=== PATIENT | female | born 1995 | race Caucasian/White ===

== ENCOUNTER 2017-10-01 03:40 | Emergency (ER) | payer SELFPAY ==
[2017-10-01] MEDS ORDERED: FENTANYL CITRATE INJ/PF 100 MCG/2 ML AMPUL IV ONE (03:55)
[2017-10-01] MEDS ORDERED: ONDANSETRON HCL INJ/PF 4 MG/2 ML SDV IV ONE (03:55)
--- NOTE | 2017-10-01 03:58 | ER Document Report ---
ED ENT <DE TOBIN - Last Filed: 10/01/17 04:32> <MANUEL VILLANUEVA - Last Filed: 10/01/17 05:52> - General Chief Complaint: Jaw Pain Stated Complaint: MOUTH ISSUE Time Seen by Provider: 10/01/17 03:52 Notes: Patient is a 22-year-old female comes emergency department for chief complaint of jaw dislocation. Patient states she vomited twice after having 7-8 beers, she states during this process she felt her jaw dislocate. She last dislocated her jaw 4 months ago, she has had surgery since, has not dislocated since the surgery. She has dislocated her jaw 3 times previously. She was brought here by her friends. She has an IUD. She denies any daily medications. (MANUEL VILLANUEVA) - Related Data Allergies/Adverse Reactions: No Known Allergies Allergy (Unverified 10/01/17 03:52) Past Medical History - General Information source: Patient - Social History Smoking Status: Never Smoker Frequency of alcohol use: Social Drug Abuse: None Lives with: Friend Family History: Reviewed & Not Pertinent Patient has suicidal ideation: No Patient has homicidal ideation: No Renal/ Medical History: Denies: Hx Peritoneal Dialysis Musculoskeltal Medical History: Reports Other - Mandible dislocations Past Surgical History: Reports: Hx Orthopedic Surgery - Jaw surgery <MANUEL VILLANUEVA - Last Filed: 10/01/17 05:52> Review of Systems - Review of Systems Constitutional: No symptoms reported EENT: See HPI Cardiovascular: No symptoms reported Respiratory: No symptoms reported Gastrointestinal: See HPI Genitourinary: No symptoms reported Female Genitourinary: No symptoms reported Musculoskeletal: See HPI Skin: No symptoms reported Hematologic/Lymphatic: No symptoms reported Neurological/Psychological: No symptoms reported <MANUEL VILLANUEVA - Last Filed: 10/01/17 05:52> Physical Exam - General General appearance: Anxious In distress: Moderate - patient in obvious discomfort, cannot close lower jaw - HEENT Head: Normocephalic, Atraumatic Eyes: Normal Conjunctiva: Normal Extraocular movements intact: Yes Eyelashes: Normal Pupils: PERRL Ears: Normal Nasal: Normal Mouth/Lips: Normal Mucous membranes: Normal Pharynx: Normal Neck: Normal - Respiratory Respiratory status: No respiratory distress Breath sounds: Normal. No: Decreased air movement, Wheezing - Cardiovascular Rhythm: Regular. No: Tachycardia Heart sounds: Normal auscultation, S1 appreciated, S2 appreciated - Back Back: Normal, Nontender. No: Tender - Extremities General upper extremity: Normal inspection, Nontender, Normal strength, Normal temperature General lower extremity: Normal inspection, Nontender, Normal strength, Normal temperature - Neurological Neuro grossly intact: Yes Cognition: Normal Orientation: AAOx4 [place] Coma Scale Eye Opening: Spontaneous [place] Coma Scale Verbal: Oriented [place] Coma Scale Motor: Obeys Commands [place] Coma Scale Total: 15 Speech: Normal Cranial nerves: Normal Cerebellar coordination: Normal Motor strength normal: LUE, RUE, LLE, RLE Additional motor exam normals: Equal senior ui designer Sensory: Normal - Psychological Associated symptoms: Anxious - Skin Skin Temperature: Warm Skin Moisture: Dry Skin Color: Normal <MANUEL VILLANUEVA - Last Filed: 10/01/17 05:52> - Vital signs Vitals: Temp Pulse Resp BP Pulse Ox 97.5 F 91 19 115/74 97 10/01/17 03:52 10/01/17 03:52 10/01/17 03:52 10/01/17 03:52 10/01/17 03:52 Course <DE TOBIN - Last Filed: 10/01/17 04:32> <MANUEL VILLANUEVA - Last Filed: 10/01/17 05:52> - Re-evaluation Re-evalutation: Patient anxious, her jaw is stuck open, she cannot close her jaw to talk, she is drooling slightly. Consistent with mandible dislocation. Patient has had surgery, CAT scan was performed quickly to rule out fracture, per my read there are bilateral dislocations at the mandible but no fractures. Patient has had good success with Versed in the past for reduction, conscious sedation was performed, Dr. Tobin and came to bedside to perform the sedation, I performed the reduction. Reduction performed easily, no complication. Patient provided with CD of the disc, she has good follow-up, her surgeon is in [place]. Discussed return precautions in detail, patient has a ride home with her friends. Patient states understanding and agreement. ( MANUEL VILLANUEVA) - Vital Signs Vital signs: Temp Pulse Resp BP Pulse Ox 97.5 F 91 18 105/74 99 10/01/17 03:52 10/01/17 03:52 10/01/17 04:46 10/01/17 04:46 10/01/17 04:46 Procedures - Conscious Sedation Conscious sedation Time started: 04:25 Time completed: 04:30 Consent obtained: Yes Indication: jaw dislocation Prior complications: Procedural sedation Normal healthy pt.: P1. - ASA Classification Airway Evaluation: Normal anatomy Mallampati Classification: Class 1 Used during procedure: Suction available, IV access obtained, Pulse ox on pt., surveillance system monitor on pt., Other - resp tech in room Medications administered: Versed Reversal agents: None I personally performed/intraservice time: Sedation, 30 min or less Complications: No <DE TOBIN - Last Filed: 10/01/17 04:32> - Joint Reduction/Fracture Care Lower Head Consent obtained: Yes Conscious sedation: Yes Pre-procedure NV exam: Yes Fracture: Other - bilateral mandible dislocation Manipulation comment: pulled from behind mandible, pressed down bilaterally with thumbs on molars Post-procedure NV exam: Yes Post-reduction x-ray: Joint reduced Reduction attempts: 1 Complications: No <MANUEL VILLANUEVA - Last Filed: 10/01/17 05:52> - Joint Reduction/Fracture Care Lower Head Notes: Reduced in one attempt, no complications, patient tolerated without any difficulties or complications. (MANUEL VILLANUEVA) Discharge <DE TOBIN - Last Filed: 10/01/17 04:32> <MANUEL VILLANUEVA - Last Filed: 10/01/17 05:52> - Discharge Clinical Impression: Dislocated jaw Qualifiers: Encounter type: initial encounter Qualified Code(s): S03.00XA - Dislocation of jaw, unspecified side, initial encounter Condition: Stable Disposition: HOME, SELF-CARE Additional Instructions: Apply warm compresses to the TMJ area for 24 hours. Maintain a soft diet for one week. Avoid extreme opening of the jaw for three weeks. Support the lower jaw when yawning. Take naproxen as needed for pain and swelling. Undergo evaluation by veterinary surgery technologist within the next few days. Return to the ED for any concerning symptoms. Prescriptions: Naproxen 500 mg PO BID #20 tablet
[2017-10-01] MEDS ORDERED: NORMAL SALINE 1000 ML 1,000 ML IV ONE (04:03)
[2017-10-01] MEDS ORDERED: MIDAZOLAM 2 MG/2 ML INJ IV ONE (04:21)
--- NOTE | 2017-10-01 04:50 | RADIOLOGY REPORT (SQ) ---
EXAM DESCRIPTION: CT FACIAL AREA WITHOUT CLINICAL HISTORY: jaw dislocation; had surgery; ? fractures COMPARISON: None available TECHNIQUE: Axial CT of the facial bones obtained without contrast. FINDINGS: Bilateral mandibular condylar dislocation. No definite mandibular fracture identified. No definite temporal bone fracture identified. Visualized orbital iqbal and floors are intact. Visualized globes and intraconal contents demonstrate no definite abnormalities. Maxillary antral iqbal and hard palate are intact. Pterygoid plates and zygomatic processes are intact. Paranasal sinuses and mastoid air cells are well aerated. No fractures the visualized cervical spine. Visualized thyroid gland is unremarkable. Scattered cervical lymph nodes are not definitely enlarged by CT criteria. Parotid and submandibular glands are unremarkable. No abnormalities of the nasopharynx or oropharynx or visualized hypopharynx. Fossa of [place] are clear. DLP: 706.7 mGy-cm IMPRESSION: 1. Bilateral anterior mandibular condylar dislocation without fracture identified. This exam was performed according to our departmental dose-optimization program, which includes automated exposure control, adjustment of the mA and/or kV according to patient size and/or use of iterative reconstruction technique.
[2017-10-01 06:13] VITALS: BP 106/55
== END 2017-10-01 05:50 | disposition home or self-care (01) ==
LOC: ER 03:40
PROC: 0RSDXZZ Reposition Left Temporomandibular Joint, External Approach (ICD-10-PCS; principal; 2017-10-01)
PROC: 0RSCXZZ Reposition Right Temporomandibular Joint, External Approach (ICD-10-PCS; 2017-10-01)
DX: S03.00XA Dislocation of jaw, unspecified side, initial encounter (principal); R68.84 Jaw pain; R11.10 Vomiting, unspecified; F41.9 Anxiety disorder, unspecified; X58.XXXA Exposure to other specified factors, initial encounter; Z72.89 Other problems related to lifestyle
CPT/HCPCS: 99284; 96361; 99152; 96374; 70486; 21480; J2250; J2405; J7030

== ENCOUNTER 2017-11-23 02:48 | Emergency (ER) | payer BC ==
[2017-11-23] MEDS ORDERED: FENTANYL CITRATE INJ/PF 100 MCG/2 ML AMPUL IV ONE (03:21)
--- NOTE | 2017-11-23 03:21 | ER Document Report ---
ED General - General Chief Complaint: Jaw Pain Stated Complaint: LOCKED JAW Time Seen by Provider: 11/23/17 03:20 Notes: 22-year-old female with history of recurrent jaw dislocations to the emergency department after vomiting and having jaw dislocation again. Was partying tonight. Having some alcohol. Got sick and started vomiting. Then dislocated her jaw. Friends are answering most of the questions. Patient apparently had surgery to repair this and has had to subsequent dislocations. TRAVEL OUTSIDE OF THE [place] IN LAST 30 DAYS: No - HPI Onset: Just prior to arrival Onset/Duration: Sudden Quality of pain: Throbbing Severity: Severe Pain Level: 5 - Related Data Allergies/Adverse Reactions: No Known Allergies Allergy (Verified 11/23/17 02:52) Past Medical History - General Information source: Patient - Social History Smoking Status: Current Every Day Smoker Cigarette use (# per day): Yes Frequency of alcohol use: Occasional Drug Abuse: None Lives with: Alone Family History: Reviewed & Not Pertinent Renal/ Medical History: Denies: Hx Peritoneal Dialysis Past Surgical History: Reports: Hx Orthopedic Surgery - Jaw surgery Review of Systems - Review of Systems Constitutional: No symptoms reported EENT: See HPI, Mouth pain, Other - jaw pain, jaw dislocation Cardiovascular: No symptoms reported Respiratory: No symptoms reported Gastrointestinal: No symptoms reported Musculoskeletal: No symptoms reported, See HPI Physical Exam - Vital signs Vitals: Temp Pulse Resp BP Pulse Ox 97.6 F 83 20 121/64 99 11/23/17 02:56 11/23/17 02:56 11/23/17 02:56 11/23/17 02:56 11/23/17 02:56 Interpretation: Normal - General General appearance: Appears well, Alert, Anxious In distress: Moderate - HEENT Head: Normocephalic, Atraumatic Eyes: Normal Pupils: PERRL Mouth/Lips: Other - She appears to have dislocation of the jaw bilaterally - Respiratory Respiratory status: No respiratory distress Chest status: Nontender Breath sounds: Normal Chest palpation: Normal - Cardiovascular Rhythm: Regular Heart sounds: Normal auscultation Murmur: No - Abdominal Inspection: Normal Distension: No distension Bowel sounds: Normal Tenderness: Nontender Organomegaly: No organomegaly - Extremities General upper extremity: Normal inspection, Nontender, Normal color, Normal ROM , Normal temperature General lower extremity: Normal inspection, Nontender, Normal color, Normal ROM , Normal temperature, Normal weight bearing. No: Joanne's sign - Neurological Neuro grossly intact: Yes Cognition: Normal Orientation: AAOx4 - Psychological Associated symptoms: Normal affect Course - Re-evaluation Re-evalutation: 11/23/17 03:44 Patient seen immediately on arrival. IV established. Fentanyl given. Reduction technique: After sedation and consent was obtained verbally gentle forward and backward motion applied to bilateral mandible. Palpable click. Patient had immediate reduction of symptoms. No complications. Patient tolerated procedure well. - Vital Signs Vital signs: Temp Pulse Resp BP Pulse Ox 97.6 F 83 15 112/73 100 11/23/17 02:56 11/23/17 02:56 11/23/17 04:06 11/23/17 04:06 11/23/17 04:06 Discharge - Discharge Clinical Impression: Dislocation, jaw closed Qualifiers: Encounter type: initial encounter Qualified Code(s): S03.00XA - Dislocation of jaw, unspecified side, initial encounter Disposition: HOME, SELF-CARE Instructions: Jaw Dislocation ([facility]) Additional Instructions: Follow-up with your regular doctor. Return if needed.
[2017-11-23 04:11] VITALS: BP 112/73
== END 2017-11-23 04:11 | disposition home or self-care (01) ==
LOC: ER 02:48
DX: M26.69 Other specified disorders of temporomandibular joint (principal); R11.10 Vomiting, unspecified; R68.84 Jaw pain; F17.210 Nicotine dependence, cigarettes, uncomplicated; Z98.890 Other specified postprocedural states
CPT/HCPCS: 20999; 99283; 96374; J3010

== ENCOUNTER 2018-09-02 03:51 | Emergency (ER) | payer BC ==
[2018-09-02] MEDS ORDERED: KETOROLAC TROMETHAMINE INJ/PF 30 MG/1 ML SDV IV ONE (04:55)
[2018-09-02] MEDS ORDERED: NORMAL SALINE 1000 ML 1,000 ML IV ONE (04:55)
[2018-09-02] MEDS ORDERED: LIDOCAINE 2% VISCOUS SOLN 20 ML UDCUP PO ONE ×2 (04:56→06:19)
--- NOTE | 2018-09-02 04:58 | ER Document Report ---
ED ENT - General Chief Complaint: Post Surgical Pain Stated Complaint: THROAT PAIN Time Seen by Provider: 09/02/18 04:48 Notes: Patient is a 23-year-old female that is 5 days postop T&A procedure by Dr. Esteban in [place] on Monday, 27 August. She states that she ran out of her Tylenol 3 pain medication 2 days ago, she states that even when she was having if she was having trouble with nausea after taking it, she has not been able to eat or drink much, she states the pain is persistent, she has difficulty and pain with swallowing, and she is still miserable. She states she felt like she had a fever, she checked her temperature several times, highest was 99.7. She is on amoxicillin 3 times a day. TRAVEL OUTSIDE OF THE [place] IN LAST 30 DAYS: No - Related Data Allergies/Adverse Reactions: No Known Allergies Allergy (Verified 11/23/17 02:52) Past Medical History - General Information source: Patient - Social History Smoking Status: Never Smoker Frequency of alcohol use: None Drug Abuse: None Lives with: Family Family History: Reviewed & Not Pertinent Renal/ Medical History: Denies: Hx Peritoneal Dialysis Past Surgical History: Reports: Hx Orthopedic Surgery - Jaw surgery - Immunizations Immunizations up to date: Yes Hx Diphtheria, Pertussis, Tetanus Vaccination: Yes Review of Systems - Review of Systems Constitutional: No symptoms reported EENT: See HPI Cardiovascular: No symptoms reported Respiratory: No symptoms reported Gastrointestinal: No symptoms reported Genitourinary: No symptoms reported Female Genitourinary: No symptoms reported Musculoskeletal: No symptoms reported Skin: No symptoms reported Hematologic/Lymphatic: No symptoms reported Neurological/Psychological: No symptoms reported Physical Exam - Vital signs Vitals: Temp Pulse Resp BP Pulse Ox 98.3 F 88 14 118/71 98 09/02/18 03:53 09/02/18 03:53 09/02/18 03:53 09/02/18 03:53 09/02/18 03:53 - Notes Notes: GENERAL: Alert, interacts well. No acute distress. HEAD: Normocephalic, atraumatic. EYES: Pupils equal, round, and reactive to light. Extraocular movements intact. ENT: Oral mucosa dry, tongue midline. Oropharynx with white exudates but no severe erythema, normal uvula, no swelling on either side, no evidence of abscess or peritonsillar abscess, no other concerning findings noted. Airway patent. Nares patent, no nasal septal hematoma, TM's intact. NECK: Full range of motion. Supple. Trachea midline. LUNGS: Clear to auscultation bilaterally, no wheezes, rales, or rhonchi. No respiratory distress. HEART: Regular rate and rhythm. No murmur ABDOMEN: Soft, non-tender. Non-distended. Bowel sounds present in all 4 quadrants. GENITOURINARY: Deferred EXTREMITIES: Moves all 4 extremities spontaneously. No edema, normal radial and dorsalis pedis pulses bilaterally. No cyanosis. BACK: no cervical, thoracic, lumbar midline tenderness. No saddle anesthesia, normal distal neurovascular exam. NEUROLOGICAL: Alert and oriented x3. Normal speech. [cranial nerves II through XII grossly intact]. PSYCH: Normal affect, normal mood. SKIN: Warm, dry, normal turgor. No rashes or lesions noted. Course - Re-evaluation Re-evalutation: Examination consistent with postop healing but no evidence of peritonsillar abscess or concerning findings noted. Patient tolerated viscous lidocaine very well, after this symptoms completely resolved, tolerated p.o. without any difficulty. She states she feels much better after Toradol and IV fluids. CBC, chemistry unremarkable. No fever. Patient has asking to leave and follow-up with her provider. She was provided with some viscous lidocaine for home. Discussed return precautions in detail. Patient states understanding and agreement. Stable at time of discharge. - Vital Signs Vital signs: Temp Pulse Resp BP Pulse Ox 98.3 F 88 14 118/71 98 09/02/18 03:53 09/02/18 03:53 09/02/18 03:53 09/02/18 03:53 09/02/18 03:53 - Laboratory Result Diagrams: 09/02/18 05:36 09/02/18 05:36 Laboratory results interpreted by me: 09/02/18 05:36 Hgb 16.2 H Discharge - Discharge Clinical Impression: Post-op pain, Dehydration Condition: Stable Disposition: HOME, SELF-CARE Additional Instructions: Your evaluation is consistent with dehydration. Use the provided viscous lidocaine as needed every 3-4 hours to help you tolerate fluids better. Complete your current medications, take the provided occasional for pain if needed. Follow-up with your surgeon as planned. Return if you worsen including fever of 100.4 or greater, inability to swallow, no urination for 8 hours or more, vomiting, severe worsening pain, or any other concerning or worsening symptoms. Forms: Return to School
[2018-09-02 06:03] LABS: ABSOLUTE EOSINOPHILS # (AUTO) 0.3 10^3/uL (0.0-0.6); ABSOLUTE LYMPHOCYTES (AUTO) 2.6 10^3/uL (0.5-4.7); ABSOLUTE MONOCYTES (AUTO) 0.7 10^3/uL (0.1-1.4); ABSOLUTE NEUT (AUTO) 4.7 10^3/uL (1.7-8.2); BASOPHILS % (AUTO) 0.5 % (0-2); EOSINOPHILS % (AUTO) 3.5 % (0-6); HEMATOCRIT 46.2 % (36.0-47.0); HEMOGLOBIN 16.2 g/dL (12.0-15.5); LYMPHOCYTES % (AUTO) 30.9 % (13-45); MEAN CORPUSCULAR HEMOGLOBIN 30.7 pg (27.0-33.4); MEAN CORPUSCULAR VOLUME 88 fl (80-97); MONOCYTES % (AUTO) 8.1 % (3-13); PLATELET COUNT 236 10^3/uL (150-450); RED BLOOD COUNT 5.27 10^6/uL (3.72-5.28); RED CELL DISTRIBUTION WIDTH 13.3 % (11.5-14.0); TOTAL CELLS COUNTED % (AUTO) 100 %; WHITE BLOOD COUNT 8.3 10^3/uL (4.0-10.5)
[2018-09-02] MEDS ORDERED: HYDROCODONE/ACETAMINOPHEN 5-325 MG (6 TAB/ER DISP) PO PRN (06:16)
[2018-09-02 06:34] LABS: ANION GAP 10 (5-19); BLOOD UREA NITROGEN 9 mg/dL (7-20); CALCIUM 9.7 mg/dL (8.4-10.2); CARBON DIOXIDE 27 mmol/L (22-30); CHLORIDE 105 mmol/L (98-107); GLUCOSE 90 mg/dL (75-110); POTASSIUM 4.4 mmol/L (3.6-5.0); SODIUM 142.2 mmol/L (137-145)
[2018-09-02 07:00] VITALS: BP 119/56
== END 2018-09-02 07:00 | disposition home or self-care (01) ==
LOC: ER 03:51
DX: G89.28 Other chronic postprocedural pain (principal); R07.0 Pain in throat; E86.0 Dehydration
CPT/HCPCS: 99283; 96361; 96374; 36415; 84703; 85025; 80048; J3490; J1885; J7030